=== PATIENT | male | born 1940 | race Caucasian/White ===

== ENCOUNTER 2017-03-24 10:37 | Emergency (ER) | payer MEDICARE, BC ==
--- NOTE | ~2017-03-24 | CT114 ---
[facility] A Service of [facility] RADIOLOGY TEXT RESULTS PATIENT: YRN MCCABE LOCATION: [facility] : 38 UNIT #: [id number] AGE: [address]: Amilcar Trammell MD SEX: M ORDER DR: [id number] [facility] [address] [place], [place] [address] [id number] MR#: [id number] Acc #: [id number] NAME: YRN MCCABE : 1940 SEX: M STUDY DATE/TIME: 03/24/2017 12:03 UNIT: [facility] ROOM: STUDY DESCRIPTION: CT Soft Tissue Neck W Cont Attending Physician: Amilcar Trammell M.D. Ordering Physician: Amilcar Trammell M.D. Primary Care Physician: Vern Medel M.D. MEDICAL IMAGING REPORT This report is preliminary unless electronic signature is present EXAM CT neck soft tissue with contrast dated 03/24/2017 COMPARISON None. HISTORY Pain in the right side of the neck for months, premedicated. TECHNIQUE CT neck soft tissue was obtained with IV contrast in the axial plane followed by sagittal and coronal reformats. This CT exam was performed with one or more of the following radiation dose reduction techniques: automatic exposure control, adjustment of mA and/or kV according to patient size, and iterative reconstruction. FINDINGS Pharyngeal mucosal space demonstrates normal-appearing nasopharynx, oropharynx, hypopharynx and larynx. Trachea is grossly unremarkable. There is a peripherally enhancing 0.9 x 1.1 cm lesion in the left thyroid lobe. Subtle heterogeneous density is noted throughout the right thyroid lobe and smaller lesions within it cannot be excluded. There are a few lymph nodes in the neck bilaterally along the jugular chain but they are not enlarged by size criteria. Atherosclerotic plaques are noted in bilateral common carotid arteries extending into bilateral internal carotid arteries, worse on the left with likely [id number] stenosis. Retropharyngeal space, parapharyngeal space, flower cheniller space, sublingual space and submental space are unremarkable. Submandibular gland and parotid glands are demonstrating mild diffuse decreased density suspicious for mild fatty infiltration. Degenerative disc and facet changes are noted at multiple levels of the cervical spine producing varying degrees of canal stenosis and neural foraminal narrowing. S-shaped nasal septal deviation is seen. Paranasal sinuses, mastoid air cells are well-aerated. [facility]. [facility] A Service of [facility] RADIOLOGY TEXT RESULTS PATIENT: YRN MCCABE [facility] #: [id number] : 38 UNIT #: [id number] AGE: [address]: Amilcar Trammell MD SEX: M ORDER DR: Orbits and the ocular structures are grossly unremarkable. IMPRESSION 1. No significant abnormality is noted within the soft tissues in the right side of the neck suggestive of an infectious process or tumor. 2. Degenerative changes are noted at multiple levels of the cervical spine with varying degrees of canal stenosis and neural foraminal narrowing. Patient probably has radiculopathy bilaterally. 3. There is some ill-defined density in the thyroid gland involving both lobes. A more focal well-defined peripherally enhancing 0.9 x 1.1 cm lesion is noted in the left thyroid lobe, incompletely characterized on the current study. On an elective basis, thyroid ultrasound is suggested. 4. Atherosclerotic plaques are noted in the carotid vessels. There is probably mild to moderate narrowing of the left internal carotid artery bulb. Dictated by... Josh George M.D. THIS IS AN ELECTRONICALLY VERIFIED REPORT Josh George M.D. at 03/26/2017 3:01 PM CPR/matias TD: 03/24/2017 13:54 JOB #: [id number] MEDICAL IMAGING REPORT Page 1 of 1 COPY
[2017-03-24 10:36] LABS: BASOPHIL% 0.5 % (0-2.5); EOSINOPHIL# 0.3 X10e3 (0-0.7); EOSINOPHIL% 4.5 % (0.0-7.0); HEMATOCRIT 45.1 % (38.0-50.0); HEMOGLOBIN 14.7 gm/dL (13.0-16.0); LYMPHOCYTE# 0.6 X10e3 (1.0-3.5); LYMPHOCYTE% 8.4 % (17.0-45.0); MEAN CELL VOLUME 96.3 FL (83-96); MEAN CORPUSCULAR HEMOGLOBIN 31.4 PG (28-34); MEAN CORPUSCULAR HGB CONC 32.6 g/dL (30-36); MEAN PLATELET VOLUME 8.2 FL (6.5-11.5); MONOCYTE# 0.8 X10e3 (0-1.0); MONOCYTE% 11.2 % (3.0-12.0); NEUTROPHIL# 5.4 X10e3 (1.5-7.1); NEUTROPHIL% 75.4 % (40-75); PLATELET COUNT 150 X10e3 (140-420); RED BLOOD COUNT 4.69 X10e (3.90-5.60); WHITE BLOOD COUNT 7.2 X10e3 (4.0-10.5)
[2017-03-24 10:37] LABS: DIFF IND NO
[~2017-03-24 10:37] MED LIST: ANTIBIOTIC; ASPIR-TRIN325 MG PO; ASPIRIN PO; ASPIRIN325 M1 PO; ATENOLOL; BENZONATATE PO; CARAFATE1 G PO; CELEXA PO; CIPRO PO; DOXYCYCLINE HY100 M1 PO; ELIQUIS5 MG PO; FLAGYL PO; IMDUR PO; IMDUR-ER60 M1 PO; IMDUR-ER60 MG DOB; LOPRESSOR PO; NITROGLYGERIN0.4 MG SL; NITROSTAT0.4 MG SL; NORCO 5/325 TAB1 TAB PO; PRILOSEC PO; RANEXA1000 MG PO; SOTALOL AF80 M1 PO; SYNTHROID PO; SYNTHROID88 MCG PO; VITAMIN D1000 UNIT PO; ZYRTEC PO
[2017-03-24 11:31] LABS: BUN/CREATININE RATIO 16.66; CALCIUM SERUM 9.2 mg/dL (8.4-10.2); CREATININE SERUM 1.2 mg/dL (0.6-1.4); GLOM FILT RATE Estimated 57.6 mL/min (>60)
== END 2017-03-24 13:35 | disposition home or self-care (01) ==
LOC: CED 10:37
PROVIDERS: Emergency Medicine
DX: R07.0 Pain in throat (principal); I48.91 Unspecified atrial fibrillation; E78.5 Hyperlipidemia, unspecified; I10 Essential (primary) hypertension; K21.9 Gastro-esophageal reflux disease without esophagitis; Z90.49 Acquired absence of other specified parts of digestive tract; Z90.89 Acquired absence of other organs; Z91.040 Latex allergy status; Z88.8 Allergy status to other drugs, medicaments and biological substances; Z91.041 Radiographic dye allergy status
CPT/HCPCS: 36415; 70491; 80048; 85025; 96361; 96374; 96375; 99284; J1200; J2930; Q9967